=== PATIENT | male | born 1960 | race African-American/Black ===

== ENCOUNTER 2016-10-06 09:50 | Emergency (ER) | payer SELFPAY ==
[~2016-10-06] VITALS: Ht 175.3 cm; Wt 125.2 kg
[2016-10-06 10:15] LABS: BASOPHILS % (AUTO) 0 % (0-10); EOSINOPHILS # (AUTO) 0.4 10^3/uL (0.0-0.3); EOSINOPHILS % (AUTO) 7 % (0-10); LYMPHOCYTES # (AUTO) 1.8 X 10^3 (1.0-4.0); LYMPHOCYTES % (AUTO) 30 % (12-44); MEAN CORPUSCULAR HEMOGLOBIN 31 PG (25-34); MEAN CORPUSCULAR HGB CONC 35 G/DL (32-36); MEAN CORPUSCULAR VOLUME 88 FL (80-99); MEAN PLATELET VOLUME 10.6 FL (7.4-10.4); MONOCYTES # (AUTO) 0.6 X 10^3 (0.0-1.0); MONOCYTES % (AUTO) 10 % (0-12); NEUTROPHILS # (AUTO) 3.1 X 10^3 (1.8-7.8); NEUTROPHILS % (AUTO) 52 % (42-75); PLATELET COUNT 281 10^3/uL (130-400); RED BLOOD COUNT 4.75 10^6/uL (4.35-5.85); RED CELL DISTRIBUTION WIDTH 13.2 % (10.0-14.5); WHITE BLOOD COUNT 5.9 10^3/uL (4.3-11.0)
[2016-10-06] MEDS ORDERED: RX-NITROGLYCERIN 0.4 MG TAB BTL 25'S SL ONE (10:15)
[2016-10-06 10:25] LABS: INR 1.1 (0.8-1.4); PROTHROMBIN TIME PATIENT 13.5 SEC (12.2-14.7)
--- NOTE | 2016-10-06 10:30 | ED Chest Pain ---
General Chief Complaint: Chest Pain Stated Complaint: CP Nursing Triage Note: PT REPORTS CP THAT BEGAN LAST NOC. HE IS NOW C/O SOA. HE REPORTS HE HAS HAD COUGH FOR A FEW DAYS AND ALSO HAS NOT TAKEN HIS MEDICATIONS IN A FEW DAYS. Nursing Sepsis Screen: No Definite Risk Source: patient Exam Limitations: no limitations History of Present Illness Time seen by provider: 10:27 Initial Comments This 56-year-old black male presents with a complaint of chest pain that began approximately an hour prior to presentation return to department. Patient related that it was a severe pain approximately a 7/10. The patient took aspirin prior to arrival. Patient's chest pain spontaneously decreased to 3/10 by the time he arrived in the emergency department. The patient denied significant shortness of breath, vomiting, diaphoresis, or similar episode in the past. Significant past medical history includes elevated lipids and hypertension. There is a family history of heart disease elevated cholesterol and hypertension. The patient is a smoker. Allergies and Home Medications Allergies Coded Allergies: No Known Drug Allergies (Unverified , 10/06/16) Review of Systems Constitutional: No chills, No fever EENTM: No Blurred Vision Respiratory: Denies Cough Cardiovascular: Chest Pain, Denies Palpitations, Denies Syncope Gastrointestinal: Denies Poor Appetite, Denies Vomiting Genitourinary: Denies Frequency Musculoskeletal: No back pain Skin: No rash Psychiatric/Neurological: No Symptoms Reported Endocrine: No Symptoms Reported Hematologic/Lymphatic: No Symptoms Reported Past Lanrrnr-Puerpq-Idsddd Hx Patient Social History Alcohol Use: Occasionally Uses Recreational Drug Use: No Smoking Status: Current Everyday Smoker Type Used: Cigarettes 2nd Hand Smoke Exposure: No Recent Foreign Travel: No Contact w/Someone Who Travel: No Recent Infectious Disease Expo: No Recent Hopitalizations: No Surgeries HX Surgeries: Yes Surgeries: Abdominal, Orthopedic Respiratory Hx Respiratory Disorders: No Cardiovascular Hx Cardiac Disorders: Yes Cardiac Disorders: Hypertension Neurological Hx Neurological Disorders: No Reviewed Nursing Assessment Reviewed/Agree w Nursing PMH: Yes Physical Exam Vital Signs Vital Sign - Last 12Hours Capillary Refill : Less Than 3 Seconds General Appearance: No Apparent Distress, WD/WN HEENT: Normal ENT Inspection Neck: Normal Inspection Respiratory: Lungs Clear, Normal Breath Sounds Cardiovascular: Regular Rate, Rhythm, No Murmur Gastrointestinal: Normal Bowel Sounds, Non Tender, Soft Extremity: Normal Capillary Refill, Normal Inspection, Normal Range of Motion, Non Tender Neurologic/Psychiatric: Alert, Oriented x3, No Motor/Sensory Deficits Progress/Results/Core Measures Results/Orders Lab Results Laboratory Tests Test 10/06/16 10:00 Range/Units White Blood Count 5.9 4.3-11.0 10^3/uL Red Blood Count 4.75 4.35-5.85 10^6/uL Hemoglobin 14.5 13.3-17.7 G/DL Hematocrit 42 40-54 % Mean Corpuscular Volume 88 80-99 FL Mean Corpuscular Hemoglobin 31 25-34 PG Mean Corpuscular Hemoglobin Concent 35 32-36 G/DL Red Cell Distribution Width 13.2 10.0-14.5 % Platelet Count 281 130-400 10^3/uL Mean Platelet Volume 10.6 H 7.4-10.4 FL Neutrophils (%) (Auto) 52 42-75 % Lymphocytes (%) (Auto) 30 12-44 % Monocytes (%) (Auto) 10 0-12 % Eosinophils (%) (Auto) 7 0-10 % Basophils (%) (Auto) 0 0-10 % Neutrophils # (Auto) 3.1 1.8-7.8 X 10^3 Lymphocytes # (Auto) 1.8 1.0-4.0 X 10^3 Monocytes # (Auto) 0.6 0.0-1.0 X 10^3 Eosinophils # (Auto) 0.4 H 0.0-0.3 10^3/uL Basophils # (Auto) 0.0 0.0-0.1 10^3/uL Prothrombin Time 13.5 12.2-14.7 SEC INR Comment 1.1 0.8-1.4 Activated Partial Thromboplast Time 30 24-35 SEC Sodium Level 136 135-145 MMOL/L Potassium Level 3.8 3.6-5.0 MMOL/L Chloride Level 104 98-107 MMOL/L Carbon Dioxide Level 23 21-32 MMOL/L Anion Gap 9 5-14 MMOL/L Blood Urea Nitrogen 11 7-18 MG/DL Creatinine 1.03 0.60-1.30 MG/DL Estimat Glomerular Filtration Rate > 60 BUN/Creatinine Ratio 11 Glucose Level 96 70-105 MG/DL Calcium Level 9.0 8.5-10.1 MG/DL Magnesium Level 2.0 1.8-2.4 MG/DL Total Bilirubin 0.3 0.1-1.0 MG/DL Aspartate Amino Transf (AST/SGOT) 28 5-34 U/L Alanine Aminotransferase (ALT/SGPT) 32 0-55 U/L Alkaline Phosphatase 66 40-136 U/L Myoglobin 230.9 H 10.0-92.0 NG/ML Troponin I < 0.30 <0.30 NG/ML B-Type Natriuretic Peptide 63.6 <100.0 PG/ML Total Protein 7.7 6.4-8.2 G/DL Albumin 3.8 3.2-4.5 G/DL My Orders Orders - MIKI, JESSICA Bobby MD Cbc With Automated Diff (10/06/16 10:08) Magnesium (10/06/16 10:08) Chest 1 View, Ap/Pa Only (10/06/16 10:08) Ekg Tracing (10/06/16 10:08) Cardiac Profile 1 (10/06/16 10:08) Comprehensive Metabolic Panel (10/06/16 10:08) Myoglobin Serum (10/06/16 10:08) Protime With Inr (10/06/16 10:08) Partial Thromboplastin Time (10/06/16 10:08) O2 (10/06/16 10:08) Monitor-Rhythm Ecg Trace Only (10/06/16 10:08) Lipid Panel (10/07/16 06:00) Rx-Nitroglycerin Sl Tabs (Rx-Nitrostat S (10/06/16 10:15) Saline Lock/Iv-Start (10/06/16 10:08) BNP (10/06/16 10:08) Medications Given in ED Current Medications Medications Dose Ordered Sig/Twin Route Start Time Stop Time Status Last Admin Dose Admin Nitroglycerin 0.4 mg UD ONCE SL 10/06/16 10:15 10/06/16 10:16 DC 10/06/16 10:14 0.4 MG Vital Signs/I&O Vital Sign - Last 12Hours 10/06/16 10/06/16 09:50 09:50 Temp 98.9 Pulse 92 Resp 23 B/P (MAP) 193/114 Pulse Ox 97 O2 Delivery Room Air Room Air Blood Pressure Mean: 140 Progress Note : Time: 11:39 Progress Note The patient's chest pain was relieved with the third nitroglycerin sublingually he was given. Patient's laboratory evaluation demonstrated an elevated myoglobin with a normal troponin. His EKG demonstrated a lateral strain pattern that was most concerning. The patient remained pain-free in the emergency department. As clearly as I couldn't explain the significant likelihood of unstable angina and possible ACS to the patient he still insisted that he was going to leave AGAINST MEDICAL ADVICE. I asked the patient to return at any time if he should change his mind. I encouraged that he follow up with his physicians in [place] as soon as possible. I gave the patient a prescription for nitroglycerin to be used should he have another episode of chest pain. I asked that he call 911 should he require the nitroglycerin. Departure Impression Impression: Primary Impression: Unstable angina Disposition: Condition: Against Medical Advice Departure-Patient Inst. Decision time for Depature: 11:41 Referrals: NO,LOCAL PHYSICIAN (PCP) Primary Care Physician Patient Instructions: Angina (DC) Add. Discharge Instructions: Nitroglycerin after chest pain recurs. Call 911 if she required a nitroglycerin. Close follow-up with your doctors in [place] today or first thing in the morning. Return if any problems or questions. All discharge instructions reviewed with patient and/or family. Voiced understanding. JESSICA LIVINGSTON MD Oct 06, 2016 10:30
[2016-10-06 10:35] LABS: ALANINE AMINOTRANSFERASE 32 U/L (0-55); ALBUMIN 3.8 G/DL (3.2-4.5); ANION GAP 9 MMOL/L (5-14); ASPARTATE AMINO TRANSFERASE 28 U/L (5-34); BILIRUBIN,TOTAL 0.3 MG/DL (0.1-1.0); BLOOD UREA NITROGEN 11 MG/DL (7-18); BUN/CREATININE RATIO 11; CARBON DIOXIDE 23 MMOL/L (21-32); CHLORIDE 104 MMOL/L (98-107); CREATININE SERUM 1.03 MG/DL (0.60-1.30); GFR ESTIMATED > 60; GLUCOSE 96 MG/DL (70-105); POTASSIUM 3.8 MMOL/L (3.6-5.0); SODIUM 136 MMOL/L (135-145); TOTAL PROTEIN 7.7 G/DL (6.4-8.2)
[2016-10-06 10:42] LABS: MYOGLOBIN SERUM 230.9 NG/ML (10.0-92.0)
--- NOTE | 2016-10-06 10:43 | Diagnostic Imaging Report ---
Indication: Chest pain COMPARISON: None available. Technique: Single frontal radiograph view of the chest dated October 06, 2016. Findings: The cardiac silhouette is mildly enlarged. No significant pulmonary vascular congestion. The lungs are clear. No pleural effusion. No pneumothorax. No acute osseous abnormality. Mild apex right curvature of the thoracic spine. Impression: Mild cardiomegaly without overt congestive heart failure or additional superimposed acute cardiopulmonary abnormality. Dictated by: Dictated on workstation # [id number]
[2016-10-06 11:43] VITALS: BP 192/125
--- OUTSIDE RECORDS SUMMARY | 2016-10-29 11:57 | XMS REPORT | Continuity of Care Document ---
Author Author [facility] Organization [facility] Address Unknown Phone Unavailable Care Team Providers Care Lactation Coordinator Name Role Phone No Pcp, Na PCP Unavailable Source Comments Some departments are not documenting in the electronic medical record. If you do not see the information that you expected, contact Release of Information in the Health Information Management department at [phone] for further assistance in locating additional records.[facility] Active Allergies and Adverse Reactions No Known Allergies Current Medications Prescription Sig. Disp. Refills Start End Date Status Date doxycycline (VIBRAMYCIN) Take 1 Tab by mouth twice 20 Tab 0 12/11/19 Active 100 mg tablet daily. 16 albuterol (VENTOLIN HFA, Inhale 2 Puffs by mouth 8.5 g 0 12/11/19 Active PROAIR HFA) 90 every 6 hours as needed 16 mcg/actuation inhaler for Wheezing. carvedilol (COREG) 12.5 Take 1 Tab by mouth twice 30 Tab 0 12/11/19 Active mg tablet daily with meals. 16 Active Problems Not on file Social History Tobacco Use Types Packs/Day Years Used Date Never Assessed Last Filed Vital Signs Vital Sign Reading Time Taken Blood Pressure 175/87 12/11/2015 7:29 AM CDT Pulse 83 12/11/2015 7:20 AM CDT Temperature 36.9 C (98.4 F) 12/11/2015 2:29 AM CDT Respiratory Rate - - Height 1.753 m (5' 9") 12/11/2015 2:29 AM CDT Weight 58.968 kg (130 lb) 12/11/2015 2:29 AM CDT Body Mass Index 19.19 12/11/2015 2:29 AM CDT Oxygen Saturation 98% 12/11/2015 7:20 AM CDT Plan of Care Health Maintenance Due Date Last Done Comments Hepatitis C Screening 1960 Physical (Comprehensive) 1967 Exam Pertussis Vaccine 1971 Tetanus Vaccine 1977 Colorectal Cancer 2010 Screening Influenza Vaccine 03/07/2017 Results from Last 3 Months Not on file
--- OUTSIDE RECORDS SUMMARY | 2016-10-29 11:57 | XMS REPORT | Continuity of Care Document ---
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 Problem 08/21/2013 [facility] Acute Prostatitis Active Problem 05/22/2013 [facility] Anemia NOS Active Problem 05/22/2013 [facility] Benign Essential Hypertension Active Problem 05/22/2013 [facility] Bladder cancer Active Problem 05/22/2013 [facility] Claustrophobia Active Problem 05/22/2013 [facility] Hematuria, Microscopic Active Problem 05/22/2013 [facility] History of inguinal hernia surgery Active Problem 2012 [facility] Hyperlipidemia Active Problem 05/22/2013 [facility] Knee pain Active Problem 05/22/2013 [facility] Morbid Obesity Active Problem 05/22/2013 [facility] Obesity NOS Active Problem 05/22/2013 1Updated based on documentation of BMI=42.9. 2Added based on documentation of BMI=40.5. [facility] Pain in Joint Involving Ankle and Foot Active Problem [facility] Shoulder pain Active Problem 05/22/2013 [facility] Sleep apnea, obstructive, adult Active Problem 2012 [facility] Snoring. Active Problem 05/22/2013 [facility] Sprain - ankle Active Problem 05/22/2013 [facility] Supraspinitus tear Active Problem 05/22/2013 [facility] Tobacco abuse Active Problem 05/22/2013 [facility] Acute prostatitis Active Problem 08/21/2013 [facility] Anemia, unspecified Active Problem 08/21/2013 [facility] Benign essential hypertension Active Problem 08/21/2013 [facility] Malignant neoplasm of bladder, part unspecified Active Problem 08/21/2013 [facility] Other isolated or specific phobias Active Problem 2013 [facility] Microscopic hematuria Active Problem 08/21/2013 [facility] History of repair of inguinal hernia (situation) Active Problem 08/21/2013 [facility] Other and unspecified hyperlipidemia Active Problem 08/21 [facility] Pain in joint involving lower leg Active Problem 2013 [facility] Morbid obesity Active Problem 08/21/2013 [facility] Obesity, unspecified Active Problem 08/21/2013 1Updated based on documentation of BMI=42.9. 2Added based on documentation of BMI=40.5. [facility] Pain in joint involving ankle and foot Active Problem [facility] Pain in joint involving shoulder region Active Problem [facility] Obstructive sleep apnea (adult) (pediatric) Active Problem 08/21/2013 [facility] Other dyspnea and respiratory abnormality Active Problem 08/21/2013 [facility] Unspecified site of ankle sprain Active Problem 2013 [facility] Supraspinitus tear (disorder) Active Problem 08/21/2013 [facility] Tobacco use disorder Active Problem 08/21/2013 [facility] Medications Medication Details Route Status Patient Instructions Ordering Provider Order Date Source naproxen 500 mg oral tablet =500 mg, 1 tab, PO, BID, # 60 tab, 0 Refill(s), Pharmacy [facility] PO Active Navin [facility] diclofenac sodium 50 mg oral enteric coated tablet = 50 mg, 1 tab, PO, BID, # 60 tab, 0 Refill(s) Active [place] [facility] Tylenol with Codeine #3 300 mg-30 mg oral tablet 1 tab , PO, Q4H, PRN for pain, X 14 Days, # 84 tab, 0 Refill(s) PO Active Genaro [facility] Levaquin 500 mg oral tablet 500 mg 1 tab, PO, Q24H, # 1 tab, 0 Refill(s) PO Active Ja [facility] Allergies, Adverse Reactions, Alerts Substance Category Reaction Severity Reaction type Status Date Reported Comments Source Percocet 5/325 drug allergy Allergy Active 1itch [facility] acetaminophen-oxycodone drug allergy Allergy Active 1itch [facility] Immunizations Results Vital Signs Vital Sign Value Date Comments Source BP Site Right Arm
</br>(08/20/2013 13:47:00) <sup > </sup> 08/20/2013 [facility] Systolic BP 157 mmHg 2013 [facility] Cuff Size Adult Large Cuff
</br>(08/20/2013 13:47: 00) <sup> </sup> 08/20/2013 [facility] Diastolic BP 99 mmHg 2013 [facility] Heart Rate 87 bpm 08/20/2013 [facility] Temperature Oral 98.8 [degF] 08/20/2013 [facility] O2 Source Room Air
</br>(08/20/2013 13:47:00) <sup > </sup> 08/20/2013 [facility] Resp. Rate 18 BRMIN 2013 [facility] Oxygen Saturation 100 % 08/20 [facility] Cuff Size Adult Long Cuff
</br>(05/21/2013 08:00: 00) <sup> </sup> 05/21/2013 [facility] BP Site Right Arm
</br>(05/21/2013 08:00:00) <sup > </sup> 05/21/2013 [facility] Diastolic BP 95 mmHg 2012 [facility] Systolic BP 156 mmHg 2012 [facility] Oxygen Saturation 97 % 2012 [facility] O2 Source Room Air
</br>(05/21/2013 08:00:00) <sup > </sup> 05/21/2013 [facility] Resp. Rate 18 BRMIN 2012 [facility] Heart Rate 75 bpm 05/21/2013 [facility] Temperature Oral 97.4 [degF] 05/21/2013 [facility] Diastolic BP 90 mmHg 2012 [facility] Resp. Rate 18 BRMIN 2012 [facility] Systolic BP 134 mmHg 2012 [facility] Temperature Oral 97.8 [degF] 05/14/2013 [facility] Heart Rate 90 bpm 05/14/2013 [facility] Systolic BP 154 mmHg 2012 [facility] Diastolic BP 90 mmHg 2012 [facility] Heart Rate 75 bpm 05/05/2013 [facility] Temperature Oral 97.7 [degF] 05/05/2013 [facility] BP Site Left Arm
</br>(05/05/2013 09:09:00) <sup> </sup> 05/05/2013 [facility] Cuff Size Adult Large Cuff
</br>(05/05/2013 09:09: 00) <sup> </sup> 05/05/2013 [facility] Encounters Procedures Plan of Care Social History Assessment and Plan Family History Value Date Source Advance Directives Order Name Results Value Date Source
== END 2016-10-06 11:50 | disposition left against medical advice (07) ==
LOC: ER 09:52
DX: I20.9 Angina pectoris, unspecified (principal); I10 Essential (primary) hypertension; F17.210 Nicotine dependence, cigarettes, uncomplicated
CPT/HCPCS: 36415; 71010; 80053; 83735; 83874; 83880; 84484; 85025; 85610; 85730; 93005; 93041